=== PATIENT | male | born 1960 | race Caucasian/White ===

== ENCOUNTER 2020-07-06 07:45 | Day surgery (SDC) | payer OTHER ==
[~2020-07-06] VITALS: Ht 185.4 cm; Wt 80.7 kg
[2020-07-06 07:57] VITALS: BP 123/74
[2020-07-06 12:22] VITALS: BP 114/67
== END 2020-07-06 15:20 | disposition home or self-care (01) ==
LOC: GI 07:45 → OR 11:00 → GI 15:20
PROVIDERS: ATTEND Internal Medicine Gastroenterology
DX: D64.9 Anemia, unspecified (principal); K63.89 Other specified diseases of intestine
CPT/HCPCS: 45378; J1200; J1610; J2250; J2310; J3010; J3490